=== PATIENT | female | born 1955 | race Caucasian/White ===

== ENCOUNTER → 2018-08-04 20:12 | Outpatient (REF) | payer OTHER, SELFPAY ==
[2018-08-04 20:33] LABS: Alanine Aminotransferase 31 IU/L (9-52); Albumin 4.1 g/dL (3.5-5.0); Albumin Globulin Ratio 1.6 (1.0-2.8); Alkaline Phosphatase 60 U/L (38-126); Aspartate Aminotransferase 22 IU/L (14-36); Bilirubin Total 0.4 mg/dL (0.2-1.3); Blood Urea Nitrogen 18 mg/dL (7-17); Calcium 9.3 mg/dL (8.4-10.2); Carbon Dioxide 28 mmol/L (22-32); Chloride 104 mmol/L (98-107); Cholesterol 187 mg/dL (140-199); Estimated Glomerular Filt Rate > 60.0 mL/min (>60); Globulin 2.5 g/dL (1.7-4.1); Glucose 90 mg/dL (80-110); HDL Cholesterol 52 mg/dL (40-60); HEMOLYSIS < 15 (0-50); LDL Cholesterol Calculated 112 mg/dL (<100); Potassium 4.4 mmol/L (3.4-5.1); Sodium 140 mmol/L (137-145); Total Protein 6.6 g/dL (6.3-8.2); Triglycerides 114 mg/dL (35-150)
[2018-08-04 21:03] LABS: Thyroid Stimulating Hormone 0.67 uIU/mL (0.47-4.68)
[2018-08-04 21:11] LABS: Creatinine Urine Random 151.2 mg/dL
[2018-08-04 21:16] LABS: Microalbumi Creatinin Ratio Ur 15.2 ug/mg CR (<30); Microalbumin Urine Random 2.3 mg/dL (0-1.6)
== END ==
LOC: LAB 20:12
PROVIDERS: PCP Physician Assistant; Visit Provider Family Medicine Geriatric Medicine
DX: Z00.00 Encounter for general adult medical examination without abnormal findings (principal)
CPT/HCPCS: 36415; 80053; 80061; 82043; 82570; 84443

== ENCOUNTER → 2018-09-01 10:48 | Outpatient (CLI) | payer OTHER, SELFPAY ==
--- NOTE | 2018-09-01 10:49 | DI.MG.S_ITS ---
BILATERAL DIGITAL SCREENING MAMMOGRAM 3D/2D WITH CAD: 09/01/2018 CLINICAL: Routine screening. Comparison is made to exams dated: 04/12/2017 mammogram, 03/05/2016 mammogram, and 01/07/2015 mammogram - [facility]. The tissue of both breasts is predominantly fatty. Current study was also evaluated with a Computer Aided Detection (CAD) system. There are benign calcifications in both breasts. No significant masses, calcifications, or other findings are seen in either breast. There has been no significant interval change. IMPRESSION: There is no mammographic evidence of malignancy. A 1 year screening mammogram is recommended. This exam was interpreted at Station ID: [id number]. NOTE: For mammograms, a report in lay terms will be sent to the patient. Approximately 15% of breast malignancies will not be visualized mammographically. In the management of a palpable breast mass, a negative mammogram must not discourage biopsy of a clinically suspicious lesion. Electronically Signed By: Familia shay/gay:09/01/2018 12:36:30 letter sent: Normal Exam ACR BI-RADS Category 2: Benign Finding(s) 3342F
== END ==
PROVIDERS: PCP Physician Assistant; Visit Provider Physician Assistant
DX: Z12.31 Encounter for screening mammogram for malignant neoplasm of breast (principal)
CPT/HCPCS: 77063; 77067

== ENCOUNTER → 2018-09-13 12:09 | Outpatient (CLI) | payer OTHER, SELFPAY ==
--- NOTE | 2018-09-13 12:11 | DI.RAD.S_ITS ---
PROCEDURE: XR HIP W PEL IF DONE LT MIN 4V INDICATIONS: right hip/groin pain due to OA? TECHNIQUE: AP pelvis with lateral view(s) of the left and right hip(s). COMPARISON: None. FINDINGS: Bones: No fractures or dislocations. Pelvic ring appears intact. No suspicious bony lesions. Severe right hip degeneration. Mild left hip degenerative joint disease. Lower lumbar spondylosis. Soft tissues: The visualized bowel gas pattern is normal. No suspicious soft tissue calcifications. IMPRESSION: Severe right and mild left hip joint degeneration Dictated by: Femi Reed M.D. on 09/13/2018 at 15:15 Approved by: Femi Reed M.D. on 09/13/2018 at 15:16
== END ==
PROVIDERS: PCP Physician Assistant; Visit Provider Physician Assistant
DX: M25.551 Pain in right hip (principal); R10.31 Right lower quadrant pain; M16.0 Bilateral primary osteoarthritis of hip
CPT/HCPCS: 73522

== ENCOUNTER 2019-03-06 07:49 | Inpatient (IN) | payer OTHER, SELFPAY ==
[2019-02-23 11:50] VITALS: BMI 34.0
[2019-03-06] VITALS (13 sets, daily range): BP systolic 105–145; BP diastolic 64–84; PULSE 63–82; RESP 10–20; TEMP 36.2–36.6; O2SAT 95–100; BMI 34.0
--- NOTE | 2019-03-06 07:53 | PM.PREOP ---
Pre-operative Note Interval Note History & Physical reviewed/Exam performed by Physician: Yes Changes to H&P: No
--- NOTE | 2019-03-06 08:24 | DI.RAD.S_ITS ---
PROCEDURE: XR PELVIS 1-2V INDICATIONS: POST OPERATIVE RIGHT HIP TECHNIQUE: 1 view of the lower pelvis acquired. COMPARISON: [facility] ALEXANDRO Awan, XR PELVIS WITH LATERAL HIP RIGHT, 02/15/2019, 10:22. FINDINGS: Bones: Patient is status post right hip arthroplasty, with hardware components in expected positions. The hip joint appears congruent. The visualized bony structures appear intact. Soft tissues: Overlying postoperative changes are noted. No suspicious soft tissue densities. . IMPRESSION: Status post right hip arthroplasty as above. Dictated by: Regi Ruiz M.D. on 03/06/2019 at 12:19 Approved by: Regi Ruiz M.D. on 03/06/2019 at 12:19
[2019-03-06] MEDS: LACTATED RINGERS 1,000 ML 42 ML IV (08:45)
[2019-03-06] MEDS: PREGABALIN 75 MG CAPSULE PO (09:11)
[2019-03-06] MEDS: ACETAMINOPHEN 325 MG TABLET 975 MG PO ×3 (09:11→21:31)
[2019-03-06] MEDS: CELECOXIB 200 MG CAPSULE PO (09:12)
[2019-03-06] MEDS: CEFAZOLIN 2 GM/100 ML FROZ.PIGGY IV ×2 (10:14→18:40)
[2019-03-06] MEDS: TRANEXAMIC ACID 1,000 MG VIAL 2000 MG INJ (10:40)
--- NOTE | 2019-03-06 10:44 | SUR.OPER ---
Lateral on padded OR bed. Gel axillary roll. Arms secured on padded armboard with pillow supporting top arm. Padded hip positioner braces x4 - anterior and posterior chest and pelvis. Additional gel pad used anterior pelvis. Gel pad under bottom leg from knee to foot and secured with tape over sheet.
[2019-03-06] MEDS: ROPIVACAINE 0.5% PF 5 MG/ML 20ML VIAL 60 ML INJ (10:52)
[2019-03-06] MEDS: MORPHINE 4 MG/ML INJ INJ (11:05)
[2019-03-06] MEDS: KETOROLAC 30 MG/ML VIAL IV (11:05)
--- NOTE | 2019-03-06 11:53 | P.OP_ITS ---
Operative Date/Time/Diagnoses Date of procedure: 03/06/19 Time of procedure: 11:53 Pre-op diagnosis: Right hip degenerative joint disease Post-op diagnosis: same Procedure & Clinicians Procedure: Right total hip arthroplasty (CPT code 42934 with asset protection assistant) Same procedure as scheduled: Yes Indications: Patient is an 63-year-old female with severe right hip DJD. The patient has pain with activities and at rest, limited ambulation and activity tolerance, difficulties with ADLs, and failure of conservative treatment. We have discussed the nature of condition, treatment options, risks and benefits, and patient elects to proceed with total hip arthroplasty and gives informed consent. Surgeon: Mariano Brenner Expediter: Gonzalez Pace Anesthesia Type: Spinal Operative Notes Closure Type: primary Specimen(s): none sent Prosthetic devices, grafts, tissues, transplants, or devices: Acetabulum: Thibodeaux and Nephew R3 acetabular component size 54 mm Femoral component: Thibodeaux and Nephew Synergy stem size 4 with standard offset Femoral head: 36 mm -3 Oxinium Estimated Blood Loss (mL): 150 Blood products transfused: none Procedure in detail: After satisfaction induction of anesthetic, and administration of IV antibiotics, the patient was positioned in the lateral decubitus position with all bony prominences well padded and pelvic position secured using a hip post anesthesia care unit nurse positioning device. Right hip and lower extremity prepped and draped in the usual sterile fashion, 1st dose of intravenous tranexamic acid was administered, then a longitudinal incision was created centered over the greater trochanter and carried sharply through the skin and subcutaneous tissues down to the fascia juli which was divided longitudinally and retracted with a Charnley retractor. External rotators visualize, cut, tagged, and retracted posteriorly, then the capsule was cut in a T-type fashion with the corners tagged and retracted. Hip was dislocated and femoral neck cut made according to preoperative templating. Acetabular retractors then placed, and the acetabular labrum and osteophytes were excised. The acetabulum was then sequentially reamed to 53 mm with an excellent circumferential ream and fit with the trial. The trial component was removed and a permanent size 54 mm Thibodeaux and Nephew R3 acetabular component was selected, positioned, and impacted with satisfactory position and fixation achieved. Permanent liner was then inserted with the elevated lip directed posteriorly. Soft tissue then removed off the lateral femoral neck in the lateral neck was entered using a box osteotome. T- handled reamers placed down the canal followed by sequential broaching to 4 with the final broach left in place for trial reduction which demonstrated excellent leg length, range of motion, and stability characteristics with a[36] mm -3 trial ball. The trial and broach were removed, and a permanent size 4 Thibodeaux and Nephew Synergy stem was selected and inserted with excellent position and fixation achieved. Another trial reduction yielded the above characteristics so the trial ball was exchanged for a permanent 36 mm -3 Oxinium ball. The hip was irrigated and reduced and excellent leg length range of motion and stability characteristics were achieved and maintained. Periarticular tissues were infiltrated with ropivacaine, Toradol, and morphine. The hip was copiously irrigated, and the capsule repaired with #2 Ethibond, and the piriformis was repaired back to the greater trochanter with the same. Fascia juli closed with interrupted #1 Ethibond sutures, and the subcutaneous tissues were closed in 2 layers of 0 Vicryl and 2 0 Vicryl. Skin was closed with lisandro and sterile dressings applied. Second dose of tranexamic acid was administered intravenously, and the anesthetic was terminated. Complications: none Post-operative Condition: stable Disposition: PACU Plan for aftercare: Patient will be admitted to the acute care glez, and anticipate discharge on postop day 1 with follow-up in office in 10-14 days. Outpatient physical therapy will be arranged and patient will continue to observe posterior hip precautions. Patient will continue use of postoperative Lovenox for 10 days postop.
--- NOTE | 2019-03-06 12:21 | PC.NURSE ---
Day sift: Pt not on AC unit at this time.
--- NOTE | 2019-03-06 12:26 | SUR.PHASEI ---
PACU phase 1 note: VSS o2 sat WNL on RA. Arrived to PACU AA/O x 3. No complaints of pain. Spinal effective for pain control. WAI dressing operating effectively. X-Ray done post op. Tolerating PO without any nausea.
--- NOTE | 2019-03-06 14:05 | PC.NURSE ---
Day shift: Arrived on unit at approx 1230. Oriented to room. Dressing is CDI. VS WNL.
[2019-03-06] MEDS: LACTATED RINGERS 1,000 ML 125 ML IV ×2 (14:28→21:33)
--- NOTE | 2019-03-06 18:22 | PT.IIE ---
Current Diagnoses Unilateral primary osteoarthritis, right hip (03/06/19) Surgery Performed Operation Date: 03/06/19 09:45 Actual Procedures p Total Hip Arthroplasty(Right) - Mariano Brenner MD Surgical History (Last Updated 02/23/19 @ 12:13 by Rere Bell, RN) History of bilateral carpal tunnel release (Acute) History of bunionectomy of both great toes (Acute ~1976) History of colonoscopy with polypectomy (Acute) Hx of left knee surgery (Acute) Hx of reduction mammoplasty (Acute) Status post gastric banding surgery Status post gastric banding surgery (Acute ~2008) Medical History (Last Updated 02/23/19 @ 12:13 by Rere Bell RN) Former smoker (Acute) HTN (hypertension) (Acute) Physical Therapy Inpatient Evaluation/Re-Eval M1 PT/OT-IP Prior Functional Status Start: 03/06/19 14:41 Freq: NEEDED Status: Active Protocol: Document 03/06/19 17:48 AR (Rec: 03/06/19 18:17 AR [email or web address]) Medical Review Prior Functional Status Medical History Reviewed Yes Mobility and Gait Independent. no use of AD Activities of Daily Living and IADL's Independent Social History Household Members friend(s) Living Arrangements House Number of Floors (Floors) One Floor Number of Stairs To Enter/Railing? 3 long steps/landings, room for walker on each step Home Environment Walk in Shower Home Equipment Front Wheel Walker,Bedside Commode,Shower Seat with Backrest Employment Status Retired Additional Social History Comment Pt lives in [place] and is moving in with a friend after discharge. Her friend(s) will be able to provide 24 hour care for her as needed. Pt plans to live with them until she is able to picking tech dog's poop. M2 PT-IP Current Condition Start: 03/06/19 14:41 Freq: NEEDED Status: Active Protocol: Document 03/06/19 17:48 AR (Rec: 03/06/19 18:17 AR [email or web address]) Physical Therapy Current Condition Current Condition Evaluation Date 03/06/19 Treatment Diagnosis R HARITHA Onset Date 03/06/2019 Precautions Posterior Hip Precautions No Hip Flexion > 90 degrees,No Hip Internal Rotation,No Hip Adduction Weight Bearing Status Weight Bearing Status Full Weight Bearing M3 PT-IP Subjective Start: 03/06/19 14:41 Freq: NEEDED Status: Active Protocol: Document 03/06/19 17:48 AR (Rec: 03/06/19 18:17 AR [email or web address]) Subjective Physical Therapy Visit Type Type Initial Evaluation Visit Start Time 17:10 Visit Stop Time 17:32 Total Visit Minutes 22 Notes R HARITHA evaluation Physical Therapy Visit Comments Patient Comments Pt feels good, other than being a little warm and sweaty . She wanted to take a few steps in her room and sit back in bed for dinner. Patient Goals Pt would like to be discharged tomorrow. M4 PT-IP Mobility and Gait Start: 03/06/19 14:41 Freq: NEEDED Status: Active Protocol: Document 03/06/19 17:48 AR (Rec: 03/06/19 18:17 AR [email or web address]) PT-Bed Mobility Assessment Sit to Supine Sit to Supine Contact Guard Assistance Scooting Scooting Up and Down in Bed Independent PT-Transfer Assessment Sit to and From Stand Sit to and from Stand Contact Guard Assistance Equipment Transfer Assistive Device Front Wheeled Walker Comments Mobility Comments Pt was compliant with hip precautions and was able to demonstrate them with sit<> stand, stand<>sit. Pt was able to ambulate with FWW with CGA and minimal verbal cueing on how to use FWW to offload RLE as needed for pain. Gait Assessment Gait Gait Assistance Required: Contact Guard Assist Distance (Feet) 8 Able to Maintain Weight Bearing Status Yes During Gait Assistive Devices Assistive Device Front Wheeled Walker Gait Deviations General Gait Pattern Antalgic,Decreased Stride Length,Step-to Gait Factors Limiting Gait Function Factors Limiting Gait Function Decreased Activity Tolerance, Decreased Strength,Pain M5 PT-IP Objective Assessments Start: 03/06/19 14:41 Freq: NEEDED Status: Active Protocol: Document 03/06/19 17:48 AR (Rec: 03/06/19 18:17 AR [email or web address]) Orientation Orientation/Cognition Level of Alertness Alert Safety Awareness Understands Safety Issues Gross Range of Motion Lower Extremity ROM Assessment Right Impaired Impairments per posterior hip precautions Strength Comments Strength Comments strength not tested Coordination Assessment Gross Coordination Gross Coordination WNL Sensation Assessment Comments Sensation Comments not tested. M6 PT-IP Treatment Start: 03/06/19 14:41 Freq: NEEDED Status: Active Protocol: Document 03/06/19 17:48 AR (Rec: 03/06/19 18:17 AR [email or web address]) Physical Therapy Treatment Exercises Exercises Ankle Pumps,Gluteal Sets,Quad Sets,Heel Slides Education Education Provided Precautions,Post-Op Packet, Safety Other Treatments Other Treatment Performed Pt was encouraged to use shower chair for safety. Pt was also educated to get computer lab assistant for ADLs. M7 PT-IP Assessment and Plan Start: 03/06/19 14:41 Freq: NEEDED Status: Active Protocol: Document 03/06/19 17:48 AR (Rec: 03/06/19 18:17 AR [email or web address]) PT Summary Assessment and Plan Potential Rehabilitation Potential Excellent Status of Condition at Evaluation Evolving Summary Impairments Pain,ROM,Strength,Balance, Sensation,Bed Mobility, Transfers,Gait,Activity Tolerance Assessment Summary Pt was on bedside commode when PT entered the room. She was able to stand up from commode while following hip precautions. Pt was able to amb ~8 feet within room. She was given minimal cueing for use of FWW and required CGA. Pt was able to perform stand<> supine while also following precautions, but reported pain with this movement. Pt was able to demonstrate exercises in bed with proper form. Pt is appropriate for d/c to friends home tomorrow as she will have 24/7 care if needed and has already purchased a FWW, shower chair and is planning to get a computer lab assistant. Goals Bed Mobility Goal Independent Transfer Goal Independent Gait Goal Independent,Front Wheel Walker Gait Distance 150 feet Days to Meet Goals 4 Frequency of Treatment Frequency Of Treatment Twice a Day Treatment Plan Physical Therapy Treatment Plan Bed Mobility Training,Transfer Training,Gait Training, Therapeutic Exercise,Post Op Education,Discharge Planning, Hot or Cold Pack Recommendations To Nursing Amount of Assist Needed Standby Assistance Discharge Recommendations PT Discharge Recommendations Home with Assistance
[2019-03-06] MEDS: ASPIRIN EC 81 MG TABLET PO (21:31)
--- NOTE | 2019-03-06 23:31 | PC.NURSE ---
pt ambulated twice, pt got up to the BR [id number]. Rt. hip dressing cdi. scds. cont pulse ox. denied pain. call light in reach. bed alarm active.
[2019-03-07] MEDS: CEFAZOLIN 2 GM/100 ML FROZ.PIGGY IV (02:19)
[2019-03-07 02:26] VITALS: BP 105/68; PULSE 76; RESP 18; TEMP 36.6; O2SAT 98
--- NOTE | 2019-03-07 03:03 | PC.NURSE ---
Addendum entered by Angie Mtz R.N. 03/07/19 06:25: Currently on RA and sat is 97%. IVF discontinued as taking good po intake. Plan is to DC later this morning. Addendum entered by Angie Mtz R.N. 03/07/19 05:09: Awake and oxygen removed as sat 100%. States pain minimal 1-2/10 and declines need for pain med. Original Note: 0215 Patient is alert and oriented. Breath sounds CTA with sat of 98% now on 0.5L/min oxygen (titrated down from 2L at shift change). HRR. Denies nausea. BT present and has just begun to pass flatus. Denies dysuria, frequency or urgency. Able to get out of bed and ambulate to bathroom with walker and SBA. WAI dressing to right hip intact with sanguinous drainage noted at upper edge. CMS intact bilaterally. Wearing calf SCD's. Denies pain. Denies weakness when up on feet but reduced ROM related to hip surgery. Follows posterior hip precautions well. Fall risks score is moderate but patient calls appropriately so alarm not currently in use.
[2019-03-07 04:52] VITALS: BP 118/71; PULSE 78; RESP 20; TEMP 36.6; O2SAT 100
[2019-03-07 06:24] VITALS: O2SAT 97
[2019-03-07 06:35] LABS: Hematocrit 36.3 % (36-46); Hemoglobin 11.9 g/dL (12.0-16.0)
--- NOTE | 2019-03-07 07:32 | P.DS_ITS ---
History of Present Illness History of Present Illness Date Patient Seen: 03/07/19 Time Patient Seen: 07:55 Chief complaint: [id number] Narrative: POD 1 s/p HARITHA with Dr. Brenner. Patient's pain is well controlled. She has been up and mobilizing with physical therapy. No complaints. Discharge Providers Provider Date of admission: 03/06/19 07:49 Discharge Date: 03/07/19 Primary care physician: Melina Vang PA-C Consults: 03/06/19 14:04 Consult to Discharge Planning Routine Comment: Consult to Physical Therapy Evaluate & Treat Comment: Physician Instructions: post op HARITHA protocol Consult to Respiratory Therapy Evaluate & Treat Comment: Physician Instructions: Evaluate and treat Discharge provider: Haydee Zamarripa PA-C Summary Hospital Course Discharge Diagnosis: Status post HARITHA obesity osteoarthritis Hospital Course: Soledad was admitted for a total hip arthroplasty with Dr. Brenner. Hospital course was unremarkable. On postop day 1. Patient was ready to discharge home. She is eating voiding without difficulty or assistance. She has been mobilizing with physical therapy throughout her stay. Her pain has be en well controlled. Lovenox for DVT prophylaxis. Exam Vital Signs (past 8 hours): - 03/07/19 02:26 03/07/19 04:52 03/07/19 06:24 Temperature 97.8 F 97.9 F Pulse Rate 76 78 Respiratory Rate 18 20 Blood Pressure 105/68 118/71 Pulse Oximetry 98 100 97 Oxygen Delivery Method Room Air,Nasal Cannula Oxygen Flow Rate 0 Narrative Exam Narrative: Patient is sitting up in bed in no acute distress. She is alert orient x3. Calves are soft, compressible, nontender bilaterally. Dressing is CDI. Sensation intact to light touch throughout both lower extremities. She is able to actively dorsiflex and plantar flex. Objective Labs Result Diagrams: 03/07/19 06:10 Labs: Laboratory Results - last 24 hr 03/07/19 06:10 Hgb 11.9 L Hct 36.3 Discharge Plan Discharge Med Rec/Prescriptions Prescriptions: New aspirin 81 mg Tablet,Delayed Release (Dr/Ec) 81 mg PO BID Qty: 60 RF: 0 hydroxyzine pamoate 25 mg Capsule 25 mg PO Q6HR PRN (Reason: Spasms) Qty: 40 RF: 0 enoxaparin [Lovenox] 40 mg/0.4 mL Syringe 40 mg subcut DAILY 9 Days RF: 0 oxycodone 5 mg capsule 5 mg PO Q4-6H PRN (Reason: pain) Qty: 40 RF: 0 Continued meloxicam 15 mg tablet 15 mg PO DAILY RF: 0 [CALCIUM] PO BID Qty: 0 RF: 0 metoprolol tartrate 25 mg tablet 12.5 mg PO BID Qty: 90 RF: 3 estradiol 0.5 mg tablet 0.5 mg PO Q DAY Qty: 90 RF: 2 medroxyprogesterone [Provera] 5 mg tablet 5 mg PO QPM RF: 0 Follow up/Referrals: Melina Vang PA-C [Primary Care Provider] - Discharge Orders: Discharge (Order); Ordered 03/07/19 Ordered By: Haydee Zamarripa Visit Report/Discharge Packet Instructions: DI for Hip Replacement, Stool Softeners, Enoxaparin Injection, Oxycodone, Hydroxyzine Discharge Data Primary Care Provider: Melina Vang Discharges patient from system. Discharge Date/Time: 03/07/19 10:29 Quality VTE Deep Vein Thrombosis/Pulmonary Embolism Present on Admission: No
[2019-03-07 07:41] VITALS: BP 131/85; PULSE 90; RESP 15; TEMP 36.9; O2SAT 100
[2019-03-07] MEDS: ACETAMINOPHEN 325 MG TABLET 975 MG PO (08:34)
[2019-03-07] MEDS: ASPIRIN EC 81 MG TABLET PO (08:34)
[2019-03-07] MEDS: ENOXAPARIN 40 MG/0.4 ML SYRINGE SUBCUT (08:35)
[2019-03-07] MEDS: SODIUM CHLORIDE 0.9% FLUSH 10 ML IV (08:35)
--- NOTE | 2019-03-07 09:08 | PT.IPTN ---
Current Diagnoses Unilateral primary osteoarthritis, right hip (03/06/19) Surgery Performed Operation Date: 03/06/19 09:45 Actual Procedures p Total Hip Arthroplasty(Right) - Mariano Brenner MD Physical Therapy Treatment Note M2 PT-IP Current Condition Start: 03/06/19 14:41 Freq: NEEDED Status: Active Protocol: Document 03/06/19 17:48 AR (Rec: 03/06/19 18:17 AR [email or web address]) Physical Therapy Current Condition Current Condition Evaluation Date 03/06/19 Treatment Diagnosis R HARITHA Onset Date 03/06/2019 Precautions Posterior Hip Precautions No Hip Flexion > 90 degrees,No Hip Internal Rotation,No Hip Adduction Weight Bearing Status Weight Bearing Status Full Weight Bearing M3 PT-IP Subjective Start: 03/06/19 14:41 Freq: NEEDED Status: Active Protocol: Document 03/07/19 08:39 CLB (Rec: 03/07/19 10:18 CLB [id number]) Subjective Physical Therapy Visit Type Type Treatment Note Visit Start Time 08:39 Visit Stop Time 09:08 Total Visit Minutes 29 Number of CARPET MEASURER Visits 1 Physical Therapy Visit Comments Patient Comments [place]. Therapy Pain Assessment Pain When Pain Assessed During Mobility Pain Present Pain Present Pain Reported Location Right Hip Intensity 3 M4 PT-IP Mobility and Gait Start: 03/06/19 14:41 Freq: NEEDED Status: Active Protocol: Document 03/07/19 08:39 CLB (Rec: 03/07/19 10:18 CLB [id number]) PT-Bed Mobility Assessment Sit to Supine Sit to Supine Standby Assistance Scooting Scooting to Edge of Bed Standby Assistance PT-Transfer Assessment Sit to and From Stand Sit to and from Stand Standby Assistance Equipment Transfer Assistive Device Gait Belt,Front Wheeled Walker Orthotic/Prosthetic Devices or Brace: Yes Transfers Transfer Destination Chair,Wheelchair Transfer Technique Stand Step Pivot Transfer Ability Level of Assist Standby Assistance Comments Mobility Comments Pt is SBA with all bed mobility and transfers. Pt able to follow all posterior hip precautions during transfer and bed mobility. Gait Assessment Gait Gait Assistance Required: Standby Assistance Distance (Feet) 150 Assistive Devices Assistive Device Gait Belt,Front Wheeled Walker Gait Deviations General Gait Pattern Antalgic,Decreased Stride Length,Step-to Gait Factors Limiting Gait Function Factors Limiting Gait Function Decreased Activity Tolerance, Decreased Strength,Pain Comments Gait Comments Pt is SBA for gait w/o LOB and good safety awareness. Stair Climbing Assessment Evaluation Level of Assist On Stairs Standby Assistance,Contact Guard Assistance,1 Person Assistance Devices Stair Climbing Assistive Devices Front Wheel Walker Technique/Endurance Stair Climbing Direction Ascend and Descend Stair Climbing Technique Step to Step Number of Steps Climbed 1 Stair Climbing Set # Repetitions (reps) 3 Comments Stair Climbing Comments Pt able to climb stairs with assist of sister. M5 PT-IP Objective Assessments Start: 03/06/19 14:41 Freq: NEEDED Status: Active Protocol: Document 03/06/19 17:48 AR (Rec: 03/06/19 18:17 AR [email or web address]) Orientation Orientation/Cognition Level of Alertness Alert Safety Awareness Understands Safety Issues Gross Range of Motion Lower Extremity ROM Assessment Right Impaired Impairments per posterior hip precautions Strength Comments Strength Comments strength not tested Coordination Assessment Gross Coordination Gross Coordination WNL Sensation Assessment Comments Sensation Comments not tested. M6 PT-IP Treatment Start: 03/06/19 14:41 Freq: NEEDED Status: Active Protocol: Document 03/07/19 08:39 CLB (Rec: 03/07/19 10:18 CLB [id number]) Physical Therapy Treatment Exercises Exercises Ankle Pumps,Gluteal Sets,Quad Sets,Heel Slides Education Education Provided Precautions,Post-Op Packet, Safety M7 PT-IP Assessment and Plan Start: 03/06/19 14:41 Freq: NEEDED Status: Active Protocol: Document 03/07/19 08:39 CLB (Rec: 03/07/19 10:18 CLB [id number]) PT Summary Assessment and Plan Potential Rehabilitation Potential Excellent Status of Condition at Evaluation Evolving Summary Impairments Pain,ROM,Strength,Balance, Sensation,Bed Mobility, Transfers,Gait,Activity Tolerance Assessment Summary Pt is SBA for all bed mobility , transfers and gait. Pt successfully climbed platform steps with sister assisting. Pt able to safety ambulate ~ 150ft SBA. Pt seems able to d/ c when medically stable. Goals Bed Mobility Goal Independent Transfer Goal Independent Gait Goal Independent,Front Wheel Walker Gait Distance 150 feet Days to Meet Goals 4 Frequency of Treatment Frequency Of Treatment Twice a Day Treatment Plan Physical Therapy Treatment Plan Bed Mobility Training,Transfer Training,Gait Training, Therapeutic Exercise,Post Op Education,Discharge Planning, Hot or Cold Pack Recommendations To Nursing Amount of Assist Needed Standby Assistance Discharge Recommendations PT Discharge Recommendations Home with Assistance
--- NOTE | 2019-03-07 09:55 | PC.NURSE ---
Day shift: Pt left unit at approx 1030. Heading home to Wednesday [facility]. Pt has been pain free. Real dressing is patent and green light flashes as it should. Paperwork singed and all questions answered. Pt has MD scrips and they have been filled. Pt also has all personal belongings. Dressing does have quarter sized shadow drainage present. Pt also had shower prior to d/c.
--- NOTE | 2019-03-07 12:18 | CM.DANOTE ---
DCP/Assessment: Reviewed chart. Patient is a 63yr old female admitted to [facility] right HARITHA performed on 03-06-[address] Brenner. PCP is Melina Vang. Primary payor is [email or web address] 2)Self. Met with patient and sister at bedside explained CM/SW role. Patient reports that she is returning home today. Patient has no identified d/c planning needs. Patient plans to f/u as outpatient for continued therapy. Patient resides on [facility] and has priority boarding pass for 11:00AM sailing. Patient family to provide transport. Sister plans to molded goods spot picker prescriptions at [facility] prior to leaving [facility] P: Home today. LARISA Hopkins Discharge Planning/Care Management CM Discharge Assessment Start: 03/07/19 12:16 Freq: Status: Discharge Protocol: Document 03/07/19 12:16 KJS (Rec: 03/07/19 12:18 KJS [id number]) Discharge Planning Assessment Assigned Radio Interference Expert LARISA Hopkins Contact Information Farhana Garciayle ([phone]) Advance Directives? Yes Advance Directives on File Yes History Provided By Patient,Family Member,Medical Record Prior Living Arrangements House Household Members friend(s) Type of transporation used prior to Drives own vehicle admit Independent with ADL's Yes Caregiver for Another No DME Already Rented / Owned FWW / Walker Patient/Family Preference OP PT Therapy Barriers to Discharge No Discharge Plan Home Transportation Arrangement Family to provide transport. Referrals Initiated None needed Whiteboard Updated in Patient Room with Yes name and ext. # of Radio Interference Expert Review Status In Process Next Review Type Continued Stay Review Pre-Anesthesia Assessment Start: 02/23/19 11:50 Freq: Status: Complete Protocol: Document 02/23/19 11:50 CAB (Rec: 02/23/19 12:23 CAB [id number]) Pre-Anesthesia Assessment Patient Information Reviewed Via Phone Assessment Assessment Completed With Patient Diagnostic Results BMP/CMP,CBC,EKG Comment Outside labs/EKG scanned to record Primary Care Provider Melina Vang Seen Specialist in Last 12 Months Yes Specialist Seen Opthamologist/Tree Marker, Orthopedist Primary Language Martiniquais Supervisor Poultry Hatchery Required No Height 167.64 cm Weight 95.708 kg Body Mass Index (BMI) 34.0 Hearing Ability Normal Visual Assist Contacts,Glasses Dentition Type Teeth, Natural Present Barriers to Learning None Other Aids No Hx Anesthesia Reactions No Hx Family Anesthesia Reaction No Hx Malignant Hyperthermia No Hx Blood Transfusions No Anesthesia Review Requested No alcohol intake current alcohol intake frequency a few times a week Smoking Status Former smoker Substance Use Type does not use Pain Present Pain Reported Musculoskeletal Symptoms Abnormal Gait,Difficulty Walking,Joint Pain History of Falling (Recent or History of No ) Patient is completely paralyzed or No completely immobile Mental Status Oriented to own ability Is patient on oxygen? No Does patient have EUCEDA/SOB No Hx Sleep Apnea No Currently Taking a Beta Jannette Yes: Metoprolol Can You Climb a Flight of Stairs Without Yes SOB Hx Chest Pain No Hx SOB No Hx Syncope or Dizziness No Anti-Coagulant Therapy No Has a Machinist 2Nd Shift No Cardiac Testing No Hx Pacemaker/ICD No Pacemaker Rep Required? No dysphagia No Urinary Catheter Present No Hx Urinary Self Catheterization No Diabetes No Patient No Lactating No Hx Drug Resistant Organism No Presence of External or Internal Medical No Devices Have you traveled outside the [facility] in the last 30 days? Marital Status Single Lives With none Prior Living Arrangements House Number of Floors (Floors) One Floor Support System Friend(s),Sibling(s) Patient Discharge Plan Description Other Comment Will stay w/sister at [place] Feels Safe in Current Environment Yes Been Physically Hurt or Threatened By a No Person in Current Environment Do you have thoughts of harming yourself None or others? Are you currently considering suicide? No Do you have a plan to hurt yourself or No Plan others? Do You Have Any Spiritual Beliefs That No May Affect Your HC Choices? Do You Have Any Cultural Practices That No May Affect Your HC Choices? Comment Rastafarian Who Can We Speak to About Patient's Care Family, friends Identifying Code for Release of Patient Declines to issue Information Health Care Proxy/Next of Kin Farhana Barillas (Sister) Health Care Proxy Advance Directives? No: Declines further information PAC Instructions Do not shave/clip surgical site,Durable medical equipment ,Medications to take/avoid, Nasal antibiotic,No ETOH/ petroleum product on skin DOS, NPO,Post-op transportation,Pre -surgical wash,Sensory aids, Sturdy shoes/comfortable clothes,Do not bring valuables and remove jewelry
== END 2019-03-07 10:29 | disposition home or self-care (01) | DRG 470 ==
LOC: AC 09:05 → ICU 11:32 → AC 12:15
PROVIDERS: Admitting Provider Orthopaedic Surgery; PCP Physician Assistant; Visit Provider Orthopaedic Surgery
PROC: 0SR90JZ Replacement of Right Hip Joint with Synthetic Substitute, Open Approach (ICD-10-PCS; CPT 27130; principal; 2019-03-06 09:45)
DX: M16.11 Unilateral primary osteoarthritis, right hip (principal); I10 Essential (primary) hypertension; M70.61 Trochanteric bursitis, right hip
CPT/HCPCS: 36415; 72170; 85014; 85018; 94762; 97110; 97116; 97162; C1776; J0690; J1100; J1650; J1885; J2250; J2270; J2274; J2405; J2704; J3010

== ENCOUNTER → 2021-08-07 11:18 | Outpatient (CLI) | payer OTHER, SELFPAY ==
[2019-03-06 14:10] VITALS: BMI 34.0
--- NOTE | 2021-08-07 | DI.MG.S_ITS ---
BILATERAL DIGITAL SCREENING MAMMOGRAM 3D/2D WITH CAD: 08/07/2021 CLINICAL: Routine screening. Comparison is made to exams dated: 09/01/2018 mammogram, 04/12/2017 mammogram, and 03/05/2016 mammogram - [facility]. The tissue of both breasts is predominantly fatty. Current study was also evaluated with a Computer Aided Detection (CAD) system. There are benign calcifications in both breasts. No significant masses, calcifications, or other findings are seen in either breast. There has been no significant interval change. IMPRESSION: BENIGN There is no mammographic evidence of malignancy. A 1 year screening mammogram is recommended. This exam was interpreted at Station ID: [id number]. NOTE: For mammograms, a report in lay terms will be sent to the patient. Approximately 15% of breast malignancies will not be visualized mammographically. In the management of a palpable breast mass, a negative mammogram must not discourage biopsy of a clinically suspicious lesion. Electronically Signed By: Pedro Pablo Berry M.D., jr/gay:08/07/2021 11:54:30 letter sent: Normal Exam ACR BI-RADS Category 2: Benign Finding(s) 3342F
== END ==
PROVIDERS: PCP Family Medicine; Referring Provider Family Medicine; Visit Provider Family Medicine
DX: Z12.31 Encounter for screening mammogram for malignant neoplasm of breast (principal)
CPT/HCPCS: 77063; 77067

== ENCOUNTER → 2023-01-21 07:33 | Outpatient (CLI) | payer OTHER, SELFPAY ==
[2019-03-06 14:10] VITALS: BMI 34.0
--- NOTE | 2023-01-21 | DI.MG.S_ITS ---
BILATERAL DIGITAL SCREENING MAMMOGRAM 3D/2D WITH CAD: 01/21/2023 CLINICAL: Routine screening. Comparison is made to exams dated: 08/07/2021 mammogram, 09/01/2018 mammogram, 04/12/2017 mammogram, and 03/05/2016 mammogram - [facility]. There are scattered areas of fibroglandular density in both breasts (category b / 25%-50% glandular tissue). Current study was also evaluated with a Computer Aided Detection (CAD) system. There are benign calcifications in both breasts. No significant masses, calcifications, or other findings are seen in either breast. There has been no significant interval change. IMPRESSION: BENIGN There is no mammographic evidence of malignancy. A 1 year screening mammogram is recommended. Based on the Tyrer Cuzick model (a risk assessment model) the patient's lifetime risk is 6.1% and her 10 year risk is 3.2%. According to the ACR, ACS, and NCCN guidelines, an annual breast MRI exam along with mammogram is recommended if the patient's lifetime risk is 20% or greater. This exam was interpreted at Station ID: [id number]. NOTE: For mammograms, a report in lay terms will be sent to the patient. Approximately 15% of breast malignancies will not be visualized mammographically. In the management of a palpable breast mass, a negative mammogram must not discourage biopsy of a clinically suspicious lesion. Electronically Signed By: Tommy bernal/gay:01/21/2023 15:35:43 letter sent: Normal Exam ACR BI-RADS Category 2: Benign Finding(s) 3342F
== END ==
PROVIDERS: PCP Family Medicine; Referring Provider Family Medicine; Visit Provider Family Medicine
DX: Z12.31 Encounter for screening mammogram for malignant neoplasm of breast (principal)
CPT/HCPCS: 77063; 77067

== ENCOUNTER → 2024-01-28 08:40 | Outpatient (CLI) | payer OTHER, SELFPAY ==
[2019-03-06 14:10] VITALS: BMI 34.0
--- NOTE | 2024-01-28 | DI.MG.S_ITS ---
BILATERAL DIGITAL SCREENING MAMMOGRAM 3D/2D WITH CAD: 01/28/2024 CLINICAL: Routine screening. Comparison is made to exams dated: 01/21/2023 mammogram, 08/07/2021 mammogram, and 09/01/2018 mammogram - [facility]. There are scattered areas of fibroglandular density in both breasts (category b / 25%-50% glandular tissue). Current study was also evaluated with a Computer Aided Detection (CAD) system. There are benign calcifications in both breasts. No significant masses, calcifications, or other findings are seen in either breast. There has been no significant interval change. IMPRESSION: BENIGN There is no mammographic evidence of malignancy. A 1 year screening mammogram is recommended. Based on the Tyrer Cuzick model (a risk assessment model) the patient's lifetime risk is 5.7% and her 10 year risk is 3.2%. According to the ACR, ACS, and NCCN guidelines, an annual breast MRI exam along with mammogram is recommended if the patient's lifetime risk is 20% or greater. This exam was interpreted at Station ID: [id number]. NOTE: For mammograms, a report in lay terms will be sent to the patient. Approximately 15% of breast malignancies will not be visualized mammographically. In the management of a palpable breast mass, a negative mammogram must not discourage biopsy of a clinically suspicious lesion. Electronically Signed By: Tommy bernal/gay:01/28/2024 14:58:02 letter sent: Normal Exam ACR BI-RADS Category 2: Benign Finding(s) 3342F
== END ==
PROVIDERS: PCP Family Medicine; Referring Provider Family Medicine; Visit Provider Family Medicine
DX: Z12.31 Encounter for screening mammogram for malignant neoplasm of breast (principal); R92.323 Mammographic fibroglandular density, bilateral breasts
CPT/HCPCS: 77063; 77067

== ENCOUNTER 2024-09-13 08:54 | Day surgery (SDC) | payer OTHER, SELFPAY ==
[2019-03-06 14:10] VITALS: BMI 34.0
--- NOTE | 2024-09-12 18:45 | PM.PREOP ---
Pre-operative Note COVID-19 COVID-19 status: Not tested Interval Note History & Physical reviewed/Exam performed by Physician: Yes Changes to H&P: No ASA Class (for procedural sedation): II
--- NOTE | 2024-09-12 18:45 | PM.OP.1 ---
Operative Date/Time/Diagnoses Date of procedure: 09/13/24 Time of procedure: 10:15 Pre-op diagnosis: Bilateral functional blepharoplasty Post-op diagnosis: same Procedure & Clinicians Procedure: Date of service: September 13, 2024 Preoperative diagnoses: 1. Bilateral upper lid dermatochalasis 2. Hypertension 3. Depression 4. Arthritis 5. Colon polyp Postoperative diagnoses: 1. Bilateral upper lid dermatochalasis Procedure: Bilateral upper blepharoplasty Surgeon: Latha Del Valle MD Complications: none Specimen: None Blood loss: Less than 3 mL Anesthesia: Local infiltration with monitored standby. Anesthesiologist: Aleena Hogue CRNA Indications: Bilateral upper lids obstructing superior vision. Preoperative external photographs taken and loss of vision to within 2 mm of marginal light reflex. Functional surgery. Procedure: In the preoperative holding area the amount skin and subcutaneous tissue to be removed was marked with indelible ink. The contours were carefully checked for symmetry and planned procedure discussed with the patient. The patient was taken to the operating room. IV sedation was given. Due to significant sleep apnea a laryngeal mask airway is placed.. Proparacaine drops were placed in both eyes for comfort. Local infiltration of anesthetic 2.5 cc into each upper lid, consisting of 1% xylocaine with epinephrine, normal saline and 1 cc hyluronidase was placed. This was then supplemented with full strength 2% xylocaine with epinephrine, 0.5% bupivacaine, and 1 cc hyalurondase. The face was prepped in an open manner. Attention was placed to the right upper lid. Using the previous wright a number 15. Bard-Mac blade was used to incise a skin muscle flap. The flap was lifted and removed. Cautery was applied as needed. Contouring of the muscle belly was also performed. Exploration of the nasal and preoperneurotic fat pads were performed removal and contouring with hemostat and scissors as well as cautery were performed. The lid was then closed with running and interrupted 6 0 Vicryl sutures. Same procedure was repeated for the left upper lid. The Betadine was removed. Maxitrol ointment was placed to suture line. She returned to recovery room in stable condition. Instructions for postoperative cold packs were reviewed. Latha Del Valle MD. Same procedure as scheduled: Yes
[2024-09-13] VITALS (8 sets, daily range): BP systolic 114–143; BP diastolic 73–89; PULSE 67–82; RESP 14–19; TEMP 36.3–37.2; O2SAT 96–99; BMI 36.6
[2024-09-13] MEDS: LACTATED RINGERS 1,000 ML 42 ML IV (09:24)
[2024-09-13] MEDS: LIDOCAINE 2% W/EPI 3 ML, BUPIVACAINE 0.5% (PF) 2 ML, HYALURONIDASE 150 UNIT INJ (12:32)
[2024-09-13] MEDS: LIDOCAINE 1% W/EPI 3 ML, SODIUM CHLORIDE 0.9% 2 ML, HYALURONIDASE 150 UNIT INJ (12:32)
[2024-09-13] MEDS: PROPARACAINE 0.5% OPHTH SOL 2 DROPS EYE-BOTH (12:33)
[2024-09-13] MEDS: NEOMYCIN/POLY/DEX OPHTH OINT 1 APPLIC EYE-BOTH (12:34)
--- NOTE | 2024-09-13 14:09 | SUR.PHASEII ---
Patient doing well, stable and ready to go home however due to late case they did miss the [place] so they will stay here for a few hours. Patient wants the ability to ice as instructed and it would be difficult in the car.
[2024-09-13] MEDS: ACETAMINOPHEN 325 MG TABLET 975 MG PO (15:01)
== END 2024-09-13 15:57 | disposition home or self-care (01) ==
PROVIDERS: PCP Family Medicine; Referring Provider Ophthalmology; Visit Provider Ophthalmology
PROC: (CPT 15823; principal; 2024-09-13 10:15)
DX: H02.834 Dermatochalasis of left upper eyelid (principal); H02.831 Dermatochalasis of right upper eyelid; I10 Essential (primary) hypertension; F32.A Depression, unspecified
CPT/HCPCS: 15823; J1100; J2405; J2704; J3010; J3470